=== PATIENT | female | born 1965 | race Caucasian/White ===

== ENCOUNTER 2018-05-24 12:14 | Emergency (ER) | payer OTHER ==
[~2018-05-24] VITALS: Ht 157.5 cm; Wt 64.4 kg
[~2018-05-24 12:14] MED LIST: DOLOGESIC-DF 51 EACH PO; LIPITOR20 MG PO; PROTONIX40 MG PO; SYNTHROID88 MCG PO; ULTRACET PO; ZANTAC300 MG PO
[2018-05-24] MEDS ORDERED: DICY20TA PO (12:21)
[2018-05-24] MEDS ORDERED: ZOFRAN ODT4 MG SL (18:23)
[2018-05-24] MEDS ORDERED: PEPCID AC20 MG PO (18:23)
== END 2018-05-24 18:38 | disposition home or self-care (01) ==
LOC: ER 12:14
DX: K29.60 Other gastritis without bleeding (principal)

== ENCOUNTER 2018-08-14 09:00 | Outpatient (CLI) | payer OTHER ==
[~2018-08-14 09:00] MED LIST changes: +DICY20TA PO; +PEPCID AC20 MG PO; +ZOFRAN ODT4 MG SL
== END 2018-08-14 09:20 | disposition home or self-care (01) ==
LOC: RX STUDY 09:00
DX: R10.13 Epigastric pain (principal)

== ENCOUNTER 2018-10-04 12:01 | Emergency (ER) | payer OTHER ==
[~2018-10-04] VITALS: Ht 157.5 cm; Wt 62.6 kg
[2018-10-04] MEDS ORDERED: OSEL75CA PO (12:44)
[2018-10-04] MEDS ORDERED: LEVSIN0.125 MG PO (12:44)
== END 2018-10-04 17:52 | disposition home or self-care (01) ==
LOC: ER 12:01
DX: K29.60 Other gastritis without bleeding (principal)

== ENCOUNTER 2018-11-06 07:37 | Outpatient (CLI) | payer OTHER ==
[~2018-11-06 07:37] MED LIST changes: +LEVSIN0.125 MG PO; +OSEL75CA PO
== END 2018-11-06 07:40 | disposition home or self-care (01) ==
LOC: NUCLEAR 07:37
DX: R10.11 Right upper quadrant pain (principal)
CPT/HCPCS: 78227; A9537

== ENCOUNTER 2019-03-28 19:54 | Inpatient (IN) | payer OTHER ==
[~2019-03-28] VITALS: Ht 61 cm; Wt 5.0 kg
[2019-04-12] MEDS ORDERED: HYOSCYAMINE0.125 M1 SL (11:45)
== END 2019-04-12 13:28 | disposition home or self-care (01) | DRG 439 ==
LOC: ER 19:54 → SURH 03-29 12:34
PROVIDERS: ADMIT Internal Medicine
PROC: BF37ZZZ Magnetic Resonance Imaging (MRI) of Pancreas (ICD-10-PCS; principal; 2019-03-29)
PROC: BW21Y0Z Computerized Tomography (CT Scan) of Abdomen and Pelvis using Other Contrast, Unenhanced and Enhanced (ICD-10-PCS; 2019-04-05)
PROC: 3E0436Z Introduction of Nutritional Substance into Central Vein, Percutaneous Approach (ICD-10-PCS; 2019-04-06)
PROC: 02HV33Z Insertion of Infusion Device into Superior Vena Cava, Percutaneous Approach (ICD-10-PCS; 2019-04-06)
DX: K85.80 Other acute pancreatitis without necrosis or infection (principal); E44.0 Moderate protein-calorie malnutrition; E03.8 Other specified hypothyroidism; E78.49 Other hyperlipidemia; K21.9 Gastro-esophageal reflux disease without esophagitis

== ENCOUNTER 2020-02-18 17:45 | Emergency (ER) | payer OTHER ==
[~2020-02-18] VITALS: Ht 157.5 cm; Wt 65.8 kg
[~2020-02-18 17:45] MED LIST changes: +HYOSCYAMINE0.125 M1 SL
== END 2020-02-18 20:30 | disposition home or self-care (01) ==
LOC: ER 17:45
DX: M54.32 Sciatica, left side (principal); M62.838 Other muscle spasm

== ENCOUNTER 2022-10-14 07:44 | Emergency (ER) | payer OTHER ==
[~2022-10-14] VITALS: Ht 157.5 cm; Wt 63.5 kg
[2022-10-14] MEDS ORDERED: ZOCOR20 MG PO (07:54)
== END 2022-10-14 19:18 | disposition home or self-care (01) ==
LOC: ER 07:44
DX: K85.90 Acute pancreatitis without necrosis or infection, unspecified (principal); R10.13 Epigastric pain; E78.00 Pure hypercholesterolemia, unspecified; E03.9 Hypothyroidism, unspecified; Z91.041 Radiographic dye allergy status

== ENCOUNTER 2022-10-19 10:42 | Inpatient (IN) | payer OTHER ==
[~2022-10-19] VITALS: Ht 157.5 cm; Wt 61.7 kg
[~2022-10-19 10:42] MED LIST changes: +ZOCOR20 MG PO
[2022-10-19] MEDS ORDERED: LEVSIN0.125 MG PO (11:08)
--- NOTE | 2022-10-19 11:10 | NUR ---
PTE ALERTA Y ORIENTADA X3 REFIRE TENER DOLOR ABDOMINAL. REFIERE DIAGNOSTICO DE PANCREATITIS EL SABADO Y LE INDICARON QUE SI DOLOR ABDOMINAL PERSISTE QUE REGRESARA A ER. PTE REFEIRE QUE ESTA MANANA DOLOR ABDOMINAL SE AGUDIZO
--- NOTE | 2022-10-19 11:50 | NUR ---
PACIENTE ALERTA Y ORIENTADA X3 . SE ORIENTA DE TRATAMIENTO [facility] MEDICA POR MIS PERES RN.PTE REFIERE ENTENDER.RN PERES CANALIZA, COLECTA MUESTRAS Y ADMINISTRA MEDICAMENTOS CON MEDIDAS ASEPTICAS CORRESPONDIENTES.
--- NOTE | 2022-10-19 15:07 | NUR ---
SE RECIBE PACIENTE DEL TURNO ANTERIOR, LA MISMA SE ENCUENTRA EN VLAD CON BARNADAS ELEVADAS POR PRECAUCION A CAIDAS, ALERTA Y ORIENTADA X3, SE LE ORIENTA SOBRE CONTINUIDAD DE TX Y VERBALIZA ENTENDER, PACIENTE RECIBIENDO IV FLUIDS [facility]DEN, PENDIENTE CT IV Y CONSULTA CON DR Leatha HASSAN
[2022-10-23] MEDS ORDERED: URSO250 MG PO (15:58)
[2022-10-23] MEDS ORDERED: PANTOPRAZOLE SO40 MG PO (15:59)
[2022-10-23] MEDS ORDERED: CARAFATE1 GM PO (15:59)
[2022-10-23] MEDS ORDERED: PEPCID AC20 MG PO (16:00)
[2022-10-23] MEDS ORDERED: TRAMADOL HCL50 MG PO (16:08)
== END 2022-10-23 17:20 | disposition home or self-care (01) | DRG 440 ==
LOC: ER 10:42 → MEDI 19:29
PROVIDERS: ADMIT Internal Medicine; ATTEND Internal Medicine
PROC: BF37ZZZ Magnetic Resonance Imaging (MRI) of Pancreas (ICD-10-PCS; principal; 2022-10-19)
PROC: BW21ZZZ Computerized Tomography (CT Scan) of Abdomen and Pelvis (ICD-10-PCS; 2022-10-19)
DX: K85.90 Acute pancreatitis without necrosis or infection, unspecified (principal); E03.9 Hypothyroidism, unspecified; E11.9 Type 2 diabetes mellitus without complications; Z79.4 Long term (current) use of insulin; E78.5 Hyperlipidemia, unspecified

== ENCOUNTER 2023-01-05 19:24 | Inpatient (IN) | payer OTHER ==
[~2023-01-05] VITALS: Ht 162.6 cm; Wt 62.6 kg
[~2023-01-05 19:24] MED LIST changes: +CARAFATE1 GM PO; +PANTOPRAZOLE SO40 MG PO; +TRAMADOL HCL50 MG PO; +URSO250 MG PO
--- NOTE | 2023-01-05 20:07 | NUR ---
PACIENTE ALERTA Y ORIENTDA X 3 REFIERE DOLOR ABDOMINAL, ADEMAS DICE QUE OTRAS VECEZ LE A DADO PANCRIATITIS.
--- NOTE | 2023-01-05 21:07 | NUR ---
PACIENTE EVALUADA POR DR MARCELA GARLAND [place] [facility], GABBI MCCLOUD, LE ORIENTA A PACIENTE SOBRE EL MISMO Y VERBALIZA ENTNEDER. LE COLECTA MUESTRAS Y LE CANALIZA BAJO MEDIDAS ASEPTICAS. LE ADMINISTRAN MED AIMEE ELVA . PENDIENTE ESTUDIO
== END 2023-01-09 15:26 | disposition home or self-care (01) | DRG 440 ==
LOC: ER 19:24 → MEDJ 23:04
PROVIDERS: ADMIT Specialist; ATTEND Specialist
PROC: BF37ZZZ Magnetic Resonance Imaging (MRI) of Pancreas (ICD-10-PCS; principal; 2023-01-05)
DX: K85.90 Acute pancreatitis without necrosis or infection, unspecified (principal); E86.0 Dehydration; K21.9 Gastro-esophageal reflux disease without esophagitis; E03.9 Hypothyroidism, unspecified; E11.9 Type 2 diabetes mellitus without complications; Z79.4 Long term (current) use of insulin; E78.5 Hyperlipidemia, unspecified; Z20.822 Contact with and (suspected) exposure to COVID-19

== ENCOUNTER 2023-04-11 08:49 | Emergency (ER) | payer OTHER ==
[~2023-04-11] VITALS: Ht 157.5 cm; Wt 56.2 kg
[2023-04-11] MEDS ORDERED: CRESTOR20 MG (08:53)
[2023-04-11 09:41] LABS: HEMATOCRIT 37.7 % (36.0-45.00); HEMOGLOBIN 12.3 g/dL (12.0-15.00); MEAN CELL VOLUME 89.2 fL (80.00-100.00); MEAN CORPUSCULAR HEMOGLOBIN 29.1 pg (27.00-32.0); MEAN CORPUSCULAR HGB CONC 32.6 g/dl (32.0-36.0); PLATELET COUNT 229 K/uL (150-450); RED BLOOD COUNT 4.22 M/uL (4.00-6.00)
[2023-04-11 09:42] LABS: PH,URINE 6.5 (5.0-8.0); URINE APPEARANCE Clear; URINE BILIRRUBIN Negative (NEGATIVE); URINE BLOOD Small; URINE COLOR Yellow; URINE GLUCOSE Negative (NEGATIVE); URINE LEUKOCYTE Negative; URINE NITRATE Negative; URINE PROTEIN Negative (NEGATIVE)
[2023-04-11 09:45] LABS: URINE BACTERIA 12.5 uL (0.0-1933); URINE EPITHELIAL CELLS 6.9 uL (0.0-38.8); URINE RBC 54.6 uL (0.0-20.8); URINE WBC 5.3 uL (0.0-23.2)
[2023-04-11 10:37] LABS: ALBUMIN 3.9 gm/dL (3.4-5.0); BILIRUBIN TOTAL 0.8 mg/dL (0.3-1.2); BILIRUBIN,CONJUGATED 0.24 mg/dL (0.0-0.2); BILIRUBIN,UNCONJUGATED 0.56 mg/dL (0.0-0.6); CALCIUM 9.2 mg/dL (8.5-10.1); CREATININE SERUM 0.76 mg/dL (0.55-1.02); GFR 77.89; POTASSIUM 4.22 mEq/L (3.5-5.1); TOTAL PROTEIN 7.7 gm/dL (6.4-8.2)
[2023-04-12 07:23] LABS: ALBUMIN 3.3 gm/dL (3.4-5.0); BILIRUBIN TOTAL 0.55 mg/dL (0.3-1.2); BILIRUBIN,CONJUGATED 0.17 mg/dL (0.0-0.2); BILIRUBIN,UNCONJUGATED 0.38 mg/dL (0.0-0.6); CALCIUM 8.5 mg/dL (8.5-10.1); CREATININE SERUM 0.74 mg/dL (0.55-1.02); GFR 80.33; POTASSIUM 4.03 mEq/L (3.5-5.1)
== END 2023-04-12 09:34 | disposition home or self-care (01) ==
LOC: ER 08:49
PROVIDERS: General Practice; Internal Medicine
DX: K29.60 Other gastritis without bleeding (principal); R11.2 Nausea with vomiting, unspecified; E78.49 Other hyperlipidemia; Z91.041 Radiographic dye allergy status
CPT/HCPCS: 36415; 74177; 93005; 96365; 96366; 96372; 99284; J1200; J2175 ×2; J2180; J2405 ×2; J2550; J2930; J3490 ×4; J7030; J7042; Q9965

== ENCOUNTER 2023-08-08 12:52 | Emergency (ER) | payer OTHER ==
[~2023-08-08] VITALS: Ht 157.5 cm; Wt 57.6 kg
[~2023-08-08 12:52] MED LIST changes: +CRESTOR20 MG
[2023-08-08] MEDS ORDERED: RESTORA CAPSUL1 EACH PO (13:11)
[2023-08-08 15:27] LABS: HEMATOCRIT 38.7 % (36.0-45.00); MEAN CELL VOLUME 89.2 fL (80.00-100.00); MEAN CORPUSCULAR HEMOGLOBIN 29.9 pg (27.00-32.0); MEAN CORPUSCULAR HGB CONC 33.5 g/dl (32.0-36.0); PLATELET COUNT 235 K/uL (150-450); RED BLOOD COUNT 4.34 M/uL (4.00-6.00); RED CELL DISTRIBUTION WIDTH 13.3 % (11.5-14.5)
[2023-08-08 15:33] LABS: PH,URINE 6.5 (5.0-8.0); URINE APPEARANCE Clear; URINE BILIRRUBIN Negative (NEGATIVE); URINE BLOOD Small; URINE COLOR Yellow; URINE GLUCOSE Negative (NEGATIVE); URINE LEUKOCYTE Negative; URINE NITRATE Negative; URINE PROTEIN Negative (NEGATIVE); URINE UROBILINOGEN 0.2 E.U./dl
[2023-08-08 15:37] LABS: URINE EPITHELIAL CELLS 4.9 uL (0.0-38.8); URINE RBC 21.8 uL (0.0-20.8)
[2023-08-08 15:53] LABS: ALBUMIN 3.6 gm/dL (3.4-5.0); BILIRUBIN TOTAL 0.77 mg/dL (0.3-1.2); BILIRUBIN,CONJUGATED 0.15 mg/dL (0.0-0.2); BILIRUBIN,UNCONJUGATED 0.62 mg/dL (0.0-0.6); CALCIUM 9.7 mg/dL (8.5-10.1); CREATININE SERUM 0.8 mg/dL (0.55-1.02); GFR 73.41; POTASSIUM 4.34 mEq/L (3.5-5.1); TOTAL PROTEIN 7.6 gm/dL (6.4-8.2)
[2023-08-08] MEDS ORDERED: CARAFATE1 GM/10 ML PO (19:22)
[2023-08-08] MEDS ORDERED: PEPCID AC20 MG PO (19:22)
== END 2023-08-08 19:45 | disposition home or self-care (01) ==
LOC: ER 12:52
PROVIDERS: General Practice
DX: K29.00 Acute gastritis without bleeding (principal); Z91.041 Radiographic dye allergy status; E03.9 Hypothyroidism, unspecified; I10 Essential (primary) hypertension; F32.89 Other specified depressive episodes; Z20.822 Contact with and (suspected) exposure to COVID-19
CPT/HCPCS: 36415; 74176; 96365; 96366; 99284; J1885; J3490; J7030

== ENCOUNTER 2023-10-21 16:02 | Emergency (ER) | payer OTHER ==
[~2023-10-21] VITALS: Ht 157.5 cm; Wt 59.9 kg
[~2023-10-21 16:02] MED LIST changes: +CARAFATE1 GM/10 ML PO; +RESTORA CAPSUL1 EACH PO
[2023-10-21] MEDS ORDERED: ED-SPAZ0.125 MG PO (16:33)
[2023-10-21] MEDS ORDERED: KETOROLAC TROMETHAMINE 30 MG VIAL IM ONE (17:00)
== END 2023-10-21 18:34 | disposition home or self-care (01) ==
LOC: ER 16:02
DX: S49.82XA Other specified injuries of left shoulder and upper arm, initial encounter (principal); W19.XXXA Unspecified fall, initial encounter; Y93.89 Activity, other specified; Y92.098 Other place in other non-institutional residence as the place of occurrence of the external cause; Y99.8 Other external cause status; M54.50 Low back pain, unspecified; I10 Essential (primary) hypertension; E03.8 Other specified hypothyroidism; Z91.041 Radiographic dye allergy status
CPT/HCPCS: 29105; 72100; 73030; 73060; 96372; 99283; J1885

== ENCOUNTER 2024-03-02 22:36 | Emergency (ER) | payer OTHER ==
[~2024-03-02] VITALS: Ht 165.1 cm; Wt 74.8 kg
[~2024-03-02 22:36] MED LIST changes: +CRESTOR20 MG PO; +ED-SPAZ0.125 MG PO; +PANTOPRAZOLE SO20 MG PO; +PEPCID20 MG PO
[2024-03-03] MEDS ORDERED: FAMOTIDINE/PF 20 MG/2 ML VIAL IV PUSH STA (00:32)
[2024-03-03] MEDS ORDERED: PROMETHAZINE HCL 50 MG/ML AMPUL IM STA (00:32)
[2024-03-03] MEDS ORDERED: MEPERIDINE HCL/PF 50 MG/ML VIAL IM STA ×2 (00:33→04:05)
[2024-03-03] MEDS ORDERED: PROMETHAZINE HCL 50 MG/ML AMPUL IM ONE ×2 (00:40→00:49)
[2024-03-03] MEDS ORDERED: FAMOTIDINE/PF 20 MG/2 ML VIAL ONE ×3 (00:40→12:59)
[2024-03-03] MEDS ORDERED: 0.9 % SODIUM CHLORIDE 1,000 ML IV ONE (00:45)
[2024-03-03 02:09] LABS: INR 1.03; PARTIAL THROMBOPLASTIN TIME 26.5 SECONDS (22.0-34.0); PROTHROMBIN TIME 11.2 SECONDS (9.0-11.5)
[2024-03-03 02:19] LABS: ALBUMIN 3.5 gm/dL (3.4-5.0); ALKALINE PHOSPHATASE 83 U/L (50-136); ALT/SGPT 19 U/L (12-78); ANION GAP 10 (10.0-20.0); AST/SGOT 14 U/L (15-37); BILIRUBIN TOTAL 0.48 mg/dL (0.3-1.2); BILIRUBIN,CONJUGATED < 0.10 mg/dL (0.0-0.2); BILIRUBIN,UNCONJUGATED 0.38 mg/dL (0.0-0.6); BLOOD UREA NITROGEN 23 mg/dL (7-18); BUN CREA RATIO 23 (7.0-25.0); CALCIUM 9.2 mg/dL (8.5-10.1); CARBON DIOXIDE 26 mEq/L (21-32); CHLORIDE 110 mmol/L (98-107); CREATININE SERUM 0.98 mg/dL (0.55-1.02); GFR 57.89; GLOBULINA 3.5 G/DL (2.4-3.5); GLUCOSE FASTING 137 mg/dL (65-100); OSMOLALITY SERUM 287 MOSM/KG (275-295); POTASSIUM 4.56 mEq/L (3.5-5.1); SODIUM 141 mmol/L (136-145)
[2024-03-03 02:28] LABS: AMYLASE 544 U/L (25-115); LIPASE 2810 U/L (13-75)
[2024-03-03 02:52] LABS: HEMATOCRIT 33.2 % (36.0-45.00); HEMOGLOBIN 11.2 g/dL (12.0-15.00); MEAN CELL VOLUME 89.1 fL (80.00-100.00); MEAN CORPUSCULAR HEMOGLOBIN 30.1 pg (27.00-32.0); MEAN CORPUSCULAR HGB CONC 33.8 g/dl (32.0-36.0); PLATELET COUNT 347 K/uL (150-450); RED BLOOD COUNT 3.73 M/uL (4.00-6.00); RED CELL DISTRIBUTION WIDTH 13.8 % (11.5-14.5)
[2024-03-03 03:27] LABS: PH,URINE 5.5 (5.0-8.0); URINE APPEARANCE Clear; URINE BILIRRUBIN Negative (NEGATIVE); URINE BLOOD Small; URINE COLOR Yellow; URINE GLUCOSE Negative (NEGATIVE); URINE KETONE Negative (NEGATIVE); URINE LEUKOCYTE Trace; URINE NITRATE Negative; URINE PROTEIN Negative (NEGATIVE); URINE UROBILINOGEN 0.2 E.U./dl
[2024-03-03 03:31] LABS: URINE BACTERIA 41.5 uL (0.0-1933); URINE EPITHELIAL CELLS 7.7 uL (0.0-38.8); URINE RBC 13.8 uL (0.0-20.8); URINE WBC 20.6 uL (0.0-23.2)
[2024-03-03] MEDS ORDERED: FAMOtidine 10 MG/ML (4ML VIAL) IV ONE (13:00)
[2024-03-03] MEDS ORDERED: MEPERIDINE HCL 25 MG/ML AMPUL IM ONE (14:00)
[2024-03-04] MEDS ORDERED: PEPCID AC10 MG (12:51)
[2024-03-04] MEDS ORDERED: CRESTOR40 MG PO (12:51)
[2024-03-04] MEDS ORDERED: LEVOTHYROXINE25 MCG PO (12:51)
== END 2024-03-03 13:08 | disposition home or self-care (01) ==
LOC: ER 22:36
PROVIDERS: General Practice
DX: K85.90 Acute pancreatitis without necrosis or infection, unspecified (principal); R10.13 Epigastric pain; R10.9 Unspecified abdominal pain; Z88.6 Allergy status to analgesic agent; Z91.041 Radiographic dye allergy status
CPT/HCPCS: 36415; 76700; 96365; 96366; 96372; 99284; J2550; J3490 ×5; J7030

== ENCOUNTER 2024-03-04 12:44 | Inpatient (IN) | payer OTHER ==
[~2024-03-04] VITALS: Ht 162.6 cm; Wt 61.2 kg
[2024-03-04] MEDS ORDERED: LEVOTHYROXINE25 MCG PO (12:51)
[2024-03-04] MEDS ORDERED: PEPCID AC10 MG (12:51)
[2024-03-04] MEDS ORDERED: CRESTOR40 MG PO (12:51)
--- NOTE | 2024-03-04 12:54 | NUR ---
PTE ALERTA Y ORIENTADA X3 EN COMPANIA DE FLAKO REFIERE VENIR A DANIEL DEBIDO A QUE LA MISMA GRIFFITHS ESTADO TENEINDO DOLOR ABDOMINAL ACOMPANADO POR VOMITOS. PTE EXPRESA ALISHA ESTADO AQUI MARIA R. SE MIDEN S/V Y SE UBICA.
[2024-03-04] MEDS ORDERED: 0.9 % SODIUM CHLORIDE 500 ML IV ONE (14:30)
[2024-03-04] MEDS ORDERED: ONDANSETRON HCL 2 MG/ML VIAL IV ONE (14:30)
[2024-03-04] MEDS ORDERED: FAMOTIDINE/PF 20 MG/2 ML VIAL IV ONE (14:30)
[2024-03-04] MEDS ORDERED: FAMOTIDINE/PF 20 MG/2 ML VIAL ONE (15:14)
[2024-03-04] MEDS ORDERED: ONDANSETRON HCL 2 MG/ML VIAL ONE (15:14)
--- NOTE | 2024-03-04 15:33 | NUR ---
PACIENTE EVALUADA POR DR. TEIXEIRA QUIEN [place] [facility], RN QUINN EDUCA ACERCA DEL MISMO Y REFIERE ENTENDER. SE CANALIZA Y COLECTAN MUESTRAS DE LABORATORIO MEDIANTE MEDIDAS ASEPTICAS. SE ADMINISTRAN MEDICAMENTOS [facility] MEDICA
[2024-03-04 15:56] LABS: HEMATOCRIT 35.8 % (36.0-45.00); HEMOGLOBIN 12.1 g/dL (12.0-15.00); MEAN CELL VOLUME 89.2 fL (80.00-100.00); MEAN CORPUSCULAR HEMOGLOBIN 30.1 pg (27.00-32.0); MEAN CORPUSCULAR HGB CONC 33.8 g/dl (32.0-36.0); PLATELET COUNT 324 K/uL (150-450); RED BLOOD COUNT 4.01 M/uL (4.00-6.00); RED CELL DISTRIBUTION WIDTH 13.5 % (11.5-14.5)
[2024-03-04 16:04] LABS: INR 1.07; PARTIAL THROMBOPLASTIN TIME 26.4 SECONDS (22.0-34.0); PROTHROMBIN TIME 11.6 SECONDS (9.0-11.5)
[2024-03-04 16:08] LABS: ALBUMIN 3.4 gm/dL (3.4-5.0); BILIRUBIN TOTAL 1.14 mg/dL (0.3-1.2); BILIRUBIN,CONJUGATED 0.21 mg/dL (0.0-0.2); BILIRUBIN,UNCONJUGATED 0.93 mg/dL (0.0-0.6); CALCIUM 9.3 mg/dL (8.5-10.1); CREATININE SERUM 0.75 mg/dL (0.55-1.02); GFR 78.82; GLOBULINA 4.4 G/DL (2.4-3.5); POTASSIUM 3.99 mEq/L (3.5-5.1); TOTAL PROTEIN 7.8 gm/dL (6.4-8.2)
[2024-03-04 16:12] LABS: PH,URINE 6.5 (5.0-8.0); URINE APPEARANCE Clear; URINE BILIRRUBIN Negative (NEGATIVE); URINE BLOOD Moderate; URINE COLOR Yellow; URINE GLUCOSE Negative (NEGATIVE); URINE KETONE 15 (NEGATIVE); URINE LEUKOCYTE Trace; URINE NITRATE Negative; URINE PROTEIN Negative (NEGATIVE); URINE UROBILINOGEN 0.2 E.U./dl
[2024-03-04 16:16] LABS: URINE BACTERIA 89.4 uL (0.0-1933); URINE EPITHELIAL CELLS 8.6 uL (0.0-38.8); URINE WBC 9.8 uL (0.0-23.2)
[2024-03-04] MEDS ORDERED: PANTOPRAZOLE SODIUM 40 MG/VIAL VIAL IV ONE (20:15)
[2024-03-04] MEDS ORDERED: PANTOPRAZOLE SODIUM 40 MG/VIAL VIAL IV PUSH SCH (21:08)
[2024-03-04] MEDS ORDERED: INSULIN LISPRO 1,000 UNIT/10 ML UNITS SUBCUTANEO PRN (21:15)
[2024-03-04] MEDS ORDERED: DEXTROSE 50 % IN WATER 0.5 G/ML DISP.SYRIN IV PRN (21:15)
[2024-03-04] MEDS ORDERED: 0.9 % SODIUM CHLORIDE 1,000 ML IV SCH (21:15)
[2024-03-05 00:13] VITALS: BP 153/78; O2SAT 97
[2024-03-05 02:41] VITALS: BP 144/84; O2SAT 98
[2024-03-05] MEDS ORDERED: PATIENTS OWN MEDICATION (MEDICAMENTO EN PISO) PO SCH ×2 (07:00→09:00)
[2024-03-05 08:33] LABS: HEMATOCRIT 30.9 % (36.0-45.00); HEMOGLOBIN 10.5 g/dL (12.0-15.00); MEAN CELL VOLUME 89.8 fL (80.00-100.00); MEAN CORPUSCULAR HEMOGLOBIN 30.5 pg (27.00-32.0); MEAN CORPUSCULAR HGB CONC 33.9 g/dl (32.0-36.0); PLATELET COUNT 288 K/uL (150-450); RED BLOOD COUNT 3.45 M/uL (4.00-6.00); RED CELL DISTRIBUTION WIDTH 13.6 % (11.5-14.5)
[2024-03-05 08:35] LABS: PH,URINE 5.5 (5.0-8.0); URINE APPEARANCE Clear; URINE BILIRRUBIN Negative (NEGATIVE); URINE BLOOD Moderate; URINE COLOR Yellow; URINE GLUCOSE Negative (NEGATIVE); URINE LEUKOCYTE Trace; URINE NITRATE Negative; URINE PROTEIN Negative (NEGATIVE)
[2024-03-05 08:39] LABS: URINE EPITHELIAL CELLS 15.7 uL (0.0-38.8); URINE WBC 12.5 uL (0.0-23.2)
[2024-03-05 08:44] LABS: ERYTHROCYTE SEDIMENTATION RATE 110 mm/hr
[2024-03-05] MEDS ORDERED: LORazepam 2 MG/ML VIAL IV NR (08:45)
[2024-03-05 08:46] LABS: URINE KETONE 80 (NEGATIVE)
[2024-03-05 09:06] VITALS: BP 150/80
[2024-03-05 09:20] LABS: INR 1.06; PARTIAL THROMBOPLASTIN TIME 28.2 SECONDS (22.0-34.0); PROTHROMBIN TIME 11.5 SECONDS (9.0-11.5)
[2024-03-05 09:56] LABS: BILIRUBIN TOTAL 0.85 mg/dL (0.3-1.2); BILIRUBIN,CONJUGATED 0.18 mg/dL (0.0-0.2); BILIRUBIN,UNCONJUGATED 0.67 mg/dL (0.0-0.6); CALCIUM 8.7 mg/dL (8.5-10.1); CREATININE SERUM 0.57 mg/dL (0.55-1.02); GFR 108.19; MAGNESIUM 1.9 mg/dL (1.8-2.4); POTASSIUM 4.01 mEq/L (3.5-5.1); T4 FREE 1.25 NG/ML (0.76-1.46); TOTAL PROTEIN 6.4 gm/dL (6.4-8.2); TSH 4.61 uIU/mL (0.358-3.74)
[2024-03-05 10:01] LABS: C-REACTIVE PROTEIN 11.7 MG/DL (0.00-0.29); CHOL HDL RATIO 4.4 (0-5.0)
[2024-03-05 17:43] VITALS: BP 172/82
[2024-03-05 22:05] VITALS: BP 149/70
[2024-03-06 01:19] VITALS: BP 131/77; O2SAT 97
[2024-03-06 05:42] VITALS: BP 140/70; O2SAT 96
[2024-03-06 09:07] VITALS: BP 125/62
[2024-03-06] MEDS ORDERED: MEPERIDINE HCL/PF 25 MG/ML VIAL IM PRN (14:45)
[2024-03-06 17:11] VITALS: BP 131/65
[2024-03-07 02:09] VITALS: BP 127/84; O2SAT 98
[2024-03-07 06:44] VITALS: BP 130/75; O2SAT 97
[2024-03-07 09:04] VITALS: BP 150/86; O2SAT 98
[2024-03-07] MEDS ORDERED: fentaNYL CITRATE 50 MCG/ML AMPUL IV STA (13:32)
[2024-03-07] MEDS ORDERED: MIDAZOLAM HCL 2 MG/2 ML VIAL IV STA (13:33)
[2024-03-07] MEDS ORDERED: TRAMADOL HCL50 MG PO (18:05)
[2024-03-07] MEDS ORDERED: URSODIOL500 MG PO (18:05)
[2024-03-07] MEDS ORDERED: PROTONIX40 MG PO (18:06)
[2024-03-07 18:52] VITALS: BP 147/70
== END 2024-03-07 19:53 | disposition home or self-care (01) | DRG 440 ==
LOC: ER 12:45 → MEDJ 23:04 → SEC-K 23:04 → MEDJ 23:24
PROVIDERS: Nurse Practitioner Family; ADMIT Internal Medicine; ATTEND Internal Medicine
PROC: BF37ZZZ Magnetic Resonance Imaging (MRI) of Pancreas (ICD-10-PCS; 2024-03-05)
PROC: 0DB78ZX Excision of Stomach, Pylorus, Via Natural or Artificial Opening Endoscopic, Diagnostic (ICD-10-PCS; principal; 2024-03-07)
DX: K85.90 Acute pancreatitis without necrosis or infection, unspecified (principal); E03.9 Hypothyroidism, unspecified; K21.9 Gastro-esophageal reflux disease without esophagitis; E11.9 Type 2 diabetes mellitus without complications; Z79.4 Long term (current) use of insulin

== ENCOUNTER 2024-03-28 12:35 | Outpatient (CLI) | payer OTHER ==
[~2024-03-28 12:35] MED LIST changes: +CRESTOR40 MG PO; +LEVOTHYROXINE25 MCG PO; +PEPCID AC10 MG; +URSODIOL500 MG PO
[2024-04-11] MEDS ORDERED: BUDESONIDE0.5 MG/21 IH (12:00)
[2024-04-11] MEDS ORDERED: ALLERGY RELIE15.8 ML NASAL (12:01)
[2024-04-11] MEDS ORDERED: TUSSIN DM LIQU118 ML PO (12:02)
== END 2024-03-28 12:44 | disposition home or self-care (01) ==
LOC: LAB 12:35 → EKG 12:35 → LAB 12:44
PROVIDERS: ATTEND Orthopaedic Surgery
DX: I10 Essential (primary) hypertension (principal)

== ENCOUNTER 2024-04-17 10:11 | Day surgery (SDC) | payer OTHER ==
[~2024-04-17 10:11] MED LIST changes: +ALLERGY RELIE15.8 ML NASAL; +BUDESONIDE0.5 MG/21 IH; +TUSSIN DM LIQU118 ML PO
[2024-04-17] MEDS ORDERED: LIDOCAINE HCL 1%/EPINEPHRINE 20ML VIAL IJ ONE (13:30)
[2024-04-17] MEDS ORDERED: BUPIVACAINE HCL 30 ML VIAL IJ ONE (13:30)
[2024-04-17] MEDS ORDERED: CEFAZOLIN SODIUM 1,000 MG VIAL IV ONE (13:30)
[2024-04-17] MEDS ORDERED: MORPHINE SULFATE 4 MG/ML VIAL IV ONE ×3 (15:00→16:15)
== END 2024-04-17 18:25 | disposition home or self-care (01) ==
LOC: CIR.AMB 10:11
PROVIDERS: ATTEND Orthopaedic Surgery
DX: M75.122 Complete rotator cuff tear or rupture of left shoulder, not specified as traumatic (principal); M75.22 Bicipital tendinitis, left shoulder; M24.112 Other articular cartilage disorders, left shoulder; Z88.6 Allergy status to analgesic agent; Z91.041 Radiographic dye allergy status; J45.909 Unspecified asthma, uncomplicated; E78.5 Hyperlipidemia, unspecified; G47.30 Sleep apnea, unspecified

== ENCOUNTER 2024-06-09 19:20 | Emergency (ER) | payer OTHER ==
[~2024-06-09] VITALS: Ht 157.5 cm; Wt 62.6 kg
[2024-06-09] MEDS ORDERED: FAMOTIDINE/PF 20 MG in 0.9 % SODIUM CHLORIDE 8 ML IV PUSH STA (20:42)
[2024-06-09] MEDS ORDERED: ONDANSETRON HCL 2 MG/ML VIAL IV ONE (20:45)
[2024-06-09] MEDS ORDERED: MEPERIDINE HCL/PF 50 MG/ML VIAL IV ONE (20:45)
[2024-06-09] MEDS ORDERED: MEPERIDINE HCL/PF 50 MG/ML VIAL IM ONE (21:15)
[2024-06-09 21:49] LABS: HEMATOCRIT 37.6 % (36.0-45.00); HEMOGLOBIN 12.6 g/dL (12.0-15.00); MEAN CELL VOLUME 88.1 fL (80.00-100.00); MEAN CORPUSCULAR HEMOGLOBIN 29.5 pg (27.00-32.0); MEAN CORPUSCULAR HGB CONC 33.5 g/dl (32.0-36.0); PLATELET COUNT 297 K/uL (150-450); RED BLOOD COUNT 4.27 M/uL (4.00-6.00); RED CELL DISTRIBUTION WIDTH 13.8 % (11.5-14.5)
[2024-06-09 22:05] LABS: ALBUMIN 3.9 gm/dL (3.4-5.0); BILIRUBIN TOTAL 0.5 mg/dL (0.3-1.2); BILIRUBIN,CONJUGATED 0.15 mg/dL (0.0-0.2); BILIRUBIN,UNCONJUGATED 0.35 mg/dL (0.0-0.6); CALCIUM 9.7 mg/dL (8.5-10.1); CREATININE SERUM 0.74 mg/dL (0.55-1.02); GFR 80.05; GLOBULINA 4.1 G/DL (2.4-3.5); POTASSIUM 5.05 mEq/L (3.5-5.1)
[2024-06-09] MEDS ORDERED: PEPCID AC20 MG PO (22:50)
[2024-06-09] MEDS ORDERED: CARAFATE1 GM PO (22:50)
[2024-06-09] MEDS ORDERED: LEVSIN/SL0.125 MG SL (22:50)
== END 2024-06-09 23:05 | disposition home or self-care (01) ==
LOC: ER 19:22
PROVIDERS: General Practice
DX: K29.70 Gastritis, unspecified, without bleeding (principal); R10.9 Unspecified abdominal pain; I10 Essential (primary) hypertension; Z88.6 Allergy status to analgesic agent; Z91.041 Radiographic dye allergy status
CPT/HCPCS: 36415; 74176; 96365; 96372; 99284; J2405; J3490

== ENCOUNTER 2024-10-08 08:34 | Outpatient (CLI) | payer OTHER ==
[~2024-10-08 08:34] MED LIST changes: +LEVSIN/SL0.125 MG SL
== END 2024-10-08 08:46 | disposition home or self-care (01) ==
LOC: TOM 08:34
PROVIDERS: ATTEND Internal Medicine
DX: K86.1 Other chronic pancreatitis (principal)
CPT/HCPCS: 74177; Q9965

== ENCOUNTER 2024-11-27 06:30 | Day surgery (SDC) | payer OTHER ==
[~2024-11-27 06:30] MED LIST changes: +METFORMIN HCL500 M1 PO
[2024-11-27] MEDS ORDERED: CEFAZOLIN SODIUM 1,000 MG VIAL ONE (08:33)
[2024-11-27] MEDS ORDERED: KETOROLAC TROMETHAMINE 30 MG VIAL ONE (10:07)
[2024-11-27] MEDS ORDERED: LIDOCAINE HCL 1%/EPINEPHRINE 20ML VIAL IJ ONE (10:38)
[2024-11-27] MEDS ORDERED: BUPIVACAINE HCL/MPF 0.5% 30ML VIAL ONE (10:38)
== END 2024-11-27 14:35 | disposition home or self-care (01) ==
LOC: CIR.AMB 06:30
PROVIDERS: ATTEND Orthopaedic Surgery
DX: M75.02 Adhesive capsulitis of left shoulder (principal); Z91.041 Radiographic dye allergy status; Z88.6 Allergy status to analgesic agent; Z88.5 Allergy status to narcotic agent

== ENCOUNTER 2025-01-03 10:19 | Inpatient (IN) | payer OTHER ==
[~2025-01-03] VITALS: Ht 152.4 cm; Wt 61.2 kg
--- NOTE | 2025-01-03 10:35 | NUR ---
SE RECIBE PACIENTE CON QUEJA DE DOLOR ABDOMINAL HACE UN ETTA, LOCALIZADO EN CUADRANTE SUPERIOR QUE IRRADIA HACIA LA ESPALDA, TIPO PUNZANTE. REFIERE TENER NAUSEAS Y PRESENTADO JLUIS EPISODIOS DE VOMITOS.
[2025-01-03] MEDS ORDERED: FAMOTIDINE/PF 20 MG/2 ML VIAL IV PUSH ONE (11:45)
[2025-01-03] MEDS ORDERED: 0.9 % SODIUM CHLORIDE 1,000 ML IV SCH (11:45)
[2025-01-03] MEDS ORDERED: ONDANSETRON HCL 2 MG/ML VIAL IV ONE (11:45)
--- NOTE | 2025-01-03 12:26 | NUR ---
SE ORIENTA A PTE SOBRE [place] MED[facility] EL MISMO INDICA ENTENDER Y ACEPTAR, SE BROOKE MUESTRAS DE LAB MAS SE ADMINISTRAN MEDICAMENTOS [facility] MEDICA BAJO MEDIDAS ASEPTICAS.
[2025-01-03 12:29] LABS: BASO % 0.1 % (0.1-1.2); EOS # 0.02 (0.04-0.54); EOS % 0.3 % (0.7-7.0); LYMPH # 1.05 (1.18-3.74); LYMPH % 14.3 % (19.3-53.1); MEAN PLATELET VOLUME 10.10 fl (9.4-12.4); MONO # 0.46 (0.24-0.82); MONO % 6.3 % (4.7-12.5); NEUT # 5.76 (1.56-6.13); NEUT % 78.7 % (34.0-71.1); RED CELL DISTRIBUTION WIDTH 13.5 % (11.6-14.4)
[2025-01-03 12:48] LABS: ALT/SGPT 378.0 U/L (12-78); AST/SGOT 526.0 U/L (15-37); BILIRUBIN TOTAL 0.97 mg/dL (0.3-1.2); BUN CREA RATIO 27.0 (7.0-25.0); CREATININE SERUM 0.7 mg/dL (0.55-1.02); GFR 85.07; GLOBULINA 3.5 G/DL (2.4-3.5); GLUCOSE FASTING 160.0 mg/dL (65-100); OSMOLALITY SERUM 289.0 MOSM/KG (275-295)
[2025-01-03 17:32] LABS: CHOL HDL RATIO 3.9 (0-5.0); HDL 73.0 mg/dl (40-60); LDL 198.0 mg/dl (0-130); VLDL 17.0 (0-39)
--- NOTE | 2025-01-03 17:34 | NUR ---
SE ORIENTA PACIENTE SOBRE [place] MEDICO Y EL MISMO REFIERE ENTENDER Y ACEPTAR IESHA. SE PROCEDE A PHAM MUESTRAS DE LAB. BAJO MEDIDAS ASEPTICAS.
[2025-01-03] MEDS ORDERED: RINGERS SOLUTION,LACTATED 1,000 ML IV SCH (22:30)
[2025-01-03] MEDS ORDERED: MEPERIDINE HCL/PF 50 MG/ML VIAL IV PRN (22:30)
[2025-01-03] MEDS ORDERED: DEXTROSE 50 % IN WATER 0.5 G/ML VIAL IV PRN (22:30)
[2025-01-03] MEDS ORDERED: INSULIN LISPRO 1,000 UNIT/10 ML UNITS SUBCUTANEO PRN (22:30)
[2025-01-03] MEDS ORDERED: ONDANSETRON HCL 4 MG in 0.9 % SODIUM CHLORIDE 50 ML IV PRN (22:45)
[2025-01-04] MEDS ORDERED: LEVOTHYROXINE SODIUM 88 MCG TABLET PO SCH (06:00)
[2025-01-04 07:44] VITALS: BP 97/62; O2SAT 99
[2025-01-04 08:10] LABS: BASO % 0.4 % (0.1-1.2); EOS # 0.09 (0.04-0.54); EOS % 1.7 % (0.7-7.0); LYMPH # 1.32 (1.18-3.74); LYMPH % 25.0 % (19.3-53.1); MEAN PLATELET VOLUME 10.90 fl (9.4-12.4); MONO # 0.49 (0.24-0.82); MONO % 9.3 % (4.7-12.5); NEUT # 3.36 (1.56-6.13); NEUT % 63.4 % (34.0-71.1); RED CELL DISTRIBUTION WIDTH 13.6 % (11.6-14.4)
[2025-01-04 08:25] LABS: INR 1.01
[2025-01-04 08:27] LABS: ALT/SGPT 371.0 U/L (12-78); AST/SGOT 200.0 U/L (15-37); BILIRUBIN TOTAL 1.02 mg/dL (0.3-1.2); BILIRUBIN,CONJUGATED 0.17 mg/dL (0.0-0.2); BUN CREA RATIO 18.0 (7.0-25.0); CREATININE SERUM 0.65 mg/dL (0.55-1.02); GFR 92.66; GLUCOSE FASTING 107.0 mg/dL (65-100); OSMOLALITY SERUM 285.0 MOSM/KG (275-295)
[2025-01-04 08:44] LABS: COVID-19 AG NEGATIVE (NEGATIVE)
[2025-01-04] MEDS ORDERED: PANTOPRAZOLE SODIUM 40 MG/VIAL VIAL IV SCH (12:00)
[2025-01-04 15:32] VITALS: BP 144/82; O2SAT 97
[2025-01-04] MEDS ORDERED: ROSUVASTATIN CALCIUM 20 MG TABLET PO SCH (17:00)
[2025-01-04 17:05] VITALS: BP 119/83; O2SAT 96
[2025-01-04 17:50] VITALS: BP 149/82; O2SAT 97
[2025-01-05 00:37] VITALS: BP 116/72; O2SAT 97
[2025-01-05 07:03] LABS: BASO % 0.4 % (0.1-1.2); EOS # 0.09 (0.04-0.54); EOS % 2.0 % (0.7-7.0); LYMPH # 1.36 (1.18-3.74); LYMPH % 30.2 % (19.3-53.1); MEAN PLATELET VOLUME 10.50 fl (9.4-12.4); MONO # 0.40 (0.24-0.82); MONO % 8.9 % (4.7-12.5); NEUT # 2.63 (1.56-6.13); NEUT % 58.5 % (34.0-71.1); RED CELL DISTRIBUTION WIDTH 13.5 % (11.6-14.4)
[2025-01-05 07:52] LABS: ALT/SGPT 232.0 U/L (12-78); AST/SGOT 72.0 U/L (15-37); BILIRUBIN TOTAL 1.09 mg/dL (0.3-1.2); BUN CREA RATIO 13.0 (7.0-25.0); CREATININE SERUM 0.67 mg/dL (0.55-1.02); GFR 89.48; GLOBULINA 2.9 G/DL (2.4-3.5); GLUCOSE FASTING 144.0 mg/dL (65-100); OSMOLALITY SERUM 286.0 MOSM/KG (275-295)
[2025-01-05 08:14] VITALS: BP 138/78; O2SAT 96
[2025-01-05] MEDS ORDERED: ORPHENADRINE CITRATE 30 MG/ML AMPUL IV SCH (09:00)
[2025-01-05 16:00] VITALS: BP 133/79; O2SAT 98
[2025-01-06 01:24] VITALS: BP 129/73; O2SAT 99
[2025-01-06 08:00] VITALS: BP 135/78; O2SAT 97
[2025-01-06] MEDS ORDERED: URSODIOL 300 MG CAPSULE PO SCH (09:00)
[2025-01-06 16:57] VITALS: BP 149/85; O2SAT 98
[2025-01-07 00:44] VITALS: BP 134/66; O2SAT 96
[2025-01-07 08:00] VITALS: BP 150/79; O2SAT 97
[2025-01-07] MEDS ORDERED: NORFLEX100MG PO (08:27)
[2025-01-07] MEDS ORDERED: URSODIOL 300 MG PO (08:27)
[2025-01-07 08:33] LABS: BASO % 0.2 % (0.1-1.2); EOS # 0.08 (0.04-0.54); EOS % 1.4 % (0.7-7.0); LYMPH # 1.62 (1.18-3.74); LYMPH % 28.1 % (19.3-53.1); MEAN PLATELET VOLUME 10.90 fl (9.4-12.4); MONO # 0.34 (0.24-0.82); MONO % 5.9 % (4.7-12.5); NEUT # 3.71 (1.56-6.13); NEUT % 64.2 % (34.0-71.1); RED CELL DISTRIBUTION WIDTH 13.2 % (11.6-14.4)
[2025-01-07 09:10] LABS: ALT/SGPT 126.0 U/L (12-78); AST/SGOT 18.0 U/L (15-37); BILIRUBIN TOTAL 0.67 mg/dL (0.3-1.2); BUN CREA RATIO 15.0 (7.0-25.0); CREATININE SERUM 0.59 mg/dL (0.55-1.02); GFR 103.62; GLOBULINA 3.0 G/DL (2.4-3.5); GLUCOSE FASTING 105.0 mg/dL (65-100); OSMOLALITY SERUM 286.0 MOSM/KG (275-295)
== END 2025-01-07 11:56 | disposition home or self-care (01) | DRG 440 ==
LOC: ER 10:19 → SEC-K 23:27 → SURH 23:27
PROVIDERS: Emergency Medicine; General Practice; Internal Medicine; ADMIT Internal Medicine; ATTEND Internal Medicine
PROC: BW21ZZZ Computerized Tomography (CT Scan) of Abdomen and Pelvis (ICD-10-PCS; principal; 2025-01-03)
PROC: BW40ZZZ Ultrasonography of Abdomen (ICD-10-PCS; 2025-01-05)
DX: K85.90 Acute pancreatitis without necrosis or infection, unspecified (principal); R74.01 Elevation of levels of liver transaminase levels; M62.838 Other muscle spasm; E11.9 Type 2 diabetes mellitus without complications; E03.9 Hypothyroidism, unspecified; Z79.84 Long term (current) use of oral hypoglycemic drugs

== ENCOUNTER 2025-06-14 11:34 | Emergency (ER) | payer OTHER ==
[~2025-06-14] VITALS: Ht 157.5 cm; Wt 62.1 kg
[~2025-06-14 11:34] MED LIST changes: +NORFLEX100MG PO; +URSODIOL 300 MG PO
[2025-06-14] MEDS ORDERED: ONDANSETRON HCL 2 MG/ML VIAL IV ONE (12:30)
[2025-06-14] MEDS ORDERED: 0.9 % SODIUM CHLORIDE 1,000 ML IV SCH (12:30)
[2025-06-14] MEDS ORDERED: FAMOTIDINE/PF 20 MG/2 ML VIAL IV ONE (12:30)
[2025-06-14] MEDS ORDERED: ONDANSETRON HCL 2 MG/ML VIAL ONE (12:37)
[2025-06-14] MEDS ORDERED: FAMOTIDINE/PF 20 MG/2 ML VIAL ONE (12:37)
[2025-06-14 13:13] LABS: BASO % 0.2 % (0.1-1.2); EOS # 0.05 (0.04-0.54); EOS % 1.0 % (0.7-7.0); LYMPH # 1.49 (1.18-3.74); LYMPH % 28.8 % (19.3-53.1); MEAN PLATELET VOLUME 10.10 fl (9.4-12.4); MONO # 0.42 (0.24-0.82); MONO % 8.1 % (4.7-12.5); NEUT # 3.19 (1.56-6.13); NEUT % 61.7 % (34.0-71.1); RED CELL DISTRIBUTION WIDTH 13.0 % (11.6-14.4)
[2025-06-14 13:17] LABS: ERYTHROCYTE SEDIMENTATION RATE 40 mm/hr (0-30)
[2025-06-14 13:43] LABS: ALT/SGPT 22.0 U/L (12-78); AST/SGOT 12.0 U/L (15-37); BILIRUBIN TOTAL 0.73 mg/dL (0.3-1.2); BUN CREA RATIO 19.0 (7.0-25.0); CREATININE SERUM 0.68 mg/dL (0.55-1.02); GFR 87.96; GLOBULINA 4.0 G/DL (2.4-3.5); GLUCOSE FASTING 114.0 mg/dL (65-100); OSMOLALITY SERUM 288.0 MOSM/KG (275-295)
[2025-06-14 14:02] LABS: URINE APPEARANCE Clear; URINE BILIRRUBIN Negative (NEGATIVE); URINE BLOOD Trace; URINE COLOR Yellow; URINE GLUCOSE Negative (NEGATIVE); URINE KETONE Negative (NEGATIVE); URINE LEUKOCYTE Negative; URINE NITRATE Negative; URINE PROTEIN Negative (NEGATIVE); URINE UROBILINOGEN 0.2 E.U./dl
[2025-06-14 14:07] LABS: URINE BACTERIA 6.8 uL (0.0-1933); URINE EPITHELIAL CELLS 2.8 uL (0.0-38.8); URINE RBC 5.5 uL (0.0-20.8)
[2025-06-14 14:09] LABS: URINE CAST 0.14 uL (0.0-1.40); URINE WBC 1.2 uL (0.0-23.2)
[2025-06-14] MEDS ORDERED: BUTALB/ACETAMINOPHEN/CAFFEINE 1 TAB TABLET PO ONE ×2 (19:15→20:01)
[2025-06-14] MEDS ORDERED: HYOSCYAMINE SULFATE 0.125 MG TAB.SUBL SL ONE (19:15)
[2025-06-14] MEDS ORDERED: HYOSCYAMINE SULFATE 0.125 MG TAB.SUBL ONE (20:01)
== END 2025-06-15 05:49 | disposition home or self-care (01) ==
LOC: ER 11:34
PROVIDERS: Student in an Organized Health Care Education/Training Program
DX: K85.80 Other acute pancreatitis without necrosis or infection (principal); Z91.041 Radiographic dye allergy status; Z88.6 Allergy status to analgesic agent; Z88.8 Allergy status to other drugs, medicaments and biological substances; E11.9 Type 2 diabetes mellitus without complications; Z79.84 Long term (current) use of oral hypoglycemic drugs; R11.2 Nausea with vomiting, unspecified
CPT/HCPCS: 36415; 74176; 96365; 96366; 99284; J2405; J3490; J7030